=== PATIENT | female | born 1985 | race Caucasian/White ===

== ENCOUNTER → 2017-07-18 | Outpatient (CLI) | payer BC ==
--- NOTE | 2017-07-18 16:32 | Diagnostic Imaging Report ---
Exam: Brain MRI without IV contrast History: Altered mental status Comparison studies: None Technique: Sagittal T2; axial DWI, FLAIR, T2*GRE, T1, Coronal T2 FLAIR. Intravenous contrast: None Findings: Scalp: Normal in signal . No masses . Bone marrow: Normal in signal intensity. Brain sulci: Appropriate for age. Ventricles: Normal in size. No hydrocephalus. Extra axial spaces: No mass, no fluid collection. Parenchyma: No abnormal signal intensities. No masses, hemorrhage, acute or chronic vascular insults. Suprasellar region: No abnormalities. Craniocervical junction: Patent foramen magnum. No Chiari deformation. Vessels: Normal flow-voids in the arteries and sinuses. IMPRESSION: No intracranial abnormalities. Signed by: Dr. Iraj Parikh M.D. on 07/18/2017 4:29 PM
--- NOTE | 2017-07-18 18:13 | Diagnostic Imaging Report ---
PROCEDURE: US THYROID COMPARISON: None. INDICATIONS:Thyroid Goiter TECHNIQUE: Transverse and longitudinal alvarez-scale sonographic images of the thyroid were obtained and supplemented with color doppler. FINDINGS: Right thyroid lobe: 5.1 x 1.3 x 2.0 cm Left thyroid lobe: Surgically absent. Isthmus: 0.2 cm. Heterogeneous, solid nodule in the right inferior pole measures 2.5 x 1.1 x 1.5 cm. There are morphologically benign lymph nodes in the right neck. CONCLUSION: 1. Status post left thyroidectomy. 2. 2.5 cm solid nodule in the inferior pole of the right thyroid lobe. Consider further evaluation with fine needle aspiration. Dictated by: Prabhjot Diego M.D. on 07/18/2017 at 18:22 Electronically approved by: Prabhjot Diego M.D. on 07/18/2017 at 18:22
== END ==
LOC: US 12:46
PROVIDERS: ATTEND Family Medicine
DX: E04.2 Nontoxic multinodular goiter (principal); R41.82 Altered mental status, unspecified
CPT/HCPCS: 70551; 76536

== ENCOUNTER → 2017-10-02 | Outpatient (CLI) | payer BC ==
--- NOTE | 2017-10-02 12:11 | Diagnostic Imaging Report ---
PROCEDURE:ULTRASOUND GUIDANCE FOR PROCEDURE COMPARISON:None. INDICATIONS:fna right thyroid bx FINDINGS: See below. CONCLUSION:Please see the dictation of the thyroid biopsy for full clinical details. Dictated by: Fidel Hastings M.D. on 10/02/2017 at 12:11 Electronically approved by: Fidel Hastings M.D. on 10/02/2017 at 12:11
--- NOTE | 2017-10-02 14:37 | Diagnostic Imaging Report ---
PROCEDURE:BIOPSY THYROID FNA COMPARISON:Thyroid ultrasound 07/18/2017. INDICATIONS:fna rt thyroid biopsy FINDINGS: Sonographic evaluation of the thyroid demonstrated a nodule in the right thyroid lobe. The left thyroid lobe is surgically absent. A safe approach was determined into the right thyroid lobe nodule. The right neck was prepped and draped in the usual sterile fashion. 1% lidocaine was infused into the subcutaneous tissues for local anesthesia. Utilizing direct sonographic guidance, fine needle aspiration biopsy samples x4 were obtained of the right thyroid lobe nodule utilizing 25 gauge needles. The specimens were given to pathology, who was at bedside. The pathologist determined the specimens to be of proper cellularity for diagnosis. Upon completion, no hematoma was visualized. A sterile dressing was applied. The patient tolerated the procedure well. There no immediate complications. The patient was transferred to the post procedure area in stable unchanged condition for further monitoring. The patient tolerated the procedure well, and there were no immediate post-procedural complications. CONCLUSION: Successful ultrasound-guided fine needle aspiration biopsy of the right thyroid nodule. Dictated by: Fidel Hastings M.D. on 10/02/2017 at 14:38 Electronically approved by: Fidel Hastings M.D. on 10/02/2017 at 14:38
== END ==
LOC: US 10:13
PROVIDERS: ATTEND Family Medicine
DX: E04.0 Nontoxic diffuse goiter (principal)
CPT/HCPCS: 10022; 76942; 88172; 88173; 88305